=== PATIENT | male | born 1945 | race Caucasian/White ===

== ENCOUNTER → 2020-10-04 | Outpatient (CLI) | payer MEDICARE ==
[~2020-10-04] MED LIST: ADVIL100 M2 PO; Z.0.ALEVE220 M1 PO
== END ==
LOC: SLEEP 19:59
PROVIDERS: ATTEND Internal Medicine
DX: G47.33 Obstructive sleep apnea (adult) (pediatric) (principal); Z20.828 Contact with and (suspected) exposure to other viral communicable diseases
CPT/HCPCS: 95810; U0002

== ENCOUNTER → 2020-10-20 | Outpatient (CLI) | payer MEDICARE | LOC: SLEEP 19:42 | PROVIDERS: ATTEND Internal Medicine | DX: G47.33 Obstructive sleep apnea (adult) (pediatric) (principal); Z20.828 Contact with and (suspected) exposure to other viral communicable diseases | CPT/HCPCS: 95811; U0002 ==